=== PATIENT | female | born 1945 | race Caucasian/White ===

== ENCOUNTER 2017-11-28 11:33 | Inpatient (IN) | payer MEDICARE, OTHER ==
[2017-11-28] MEDS ORDERED: IPRATROPIUM/ALBUTEROL 0.5-2.5 MG/3 ML AMPUL NEB ONE ×2 (11:56→14:21)
--- NOTE | 2017-11-28 11:56 | ER Document Report ---
ED Medical Screen (RME) - General Chief Complaint: Cough Stated Complaint: SHORTNESS OF BREATH Time Seen by Provider: 11/28/17 11:56 Notes: 71-year-old female patient emergency department chief complaint shortness of breath and cough. Vomiting. Nausea. Not feeling well. Smokes daily. Was exposed to secondhand smoke as well. Cannot seem to catch her breath. Has a prescription for albuterol. Also diabetic. I have greeted and performed a rapid initial assessment of this patient. A comprehensive ED assessment and evaluation of the patient, analysis of test results and completion of the medical decision making process will be conducted by additional ED providers. - Related Data Allergies/Adverse Reactions: acetaminophen [From Darvocet-N] Allergy (Verified 11/28/17 11:49) codeine [Codeine] Allergy (Verified 11/28/17 11:49) meperidine [From Demerol] Allergy (Verified 11/28/17 11:49) propoxyphene [From Darvocet-N] Allergy (Verified 11/28/17 11:49) Past Medical History - General Information source: Patient - Social History Chew tobacco use (# tins/day): No Frequency of alcohol use: None Drug Abuse: None Lives with: Spouse/Significant other Family history: Reviewed & Not Pertinent Pulmonary Medical History: Reports: Hx Asthma Endocrine Medical History: Reports: Hx Diabetes Mellitus Type 2 Renal/ Medical History: Denies: Hx Peritoneal Dialysis Psychiatric Medical History: Reports: Hx Depression Past Surgical History: Reports: Hx Orthopedic Surgery - back, Hx Tonsillectomy - Immunizations Hx Diphtheria, Pertussis, Tetanus Vaccination: Yes Review of Systems - Review of Systems Constitutional: Malaise, Weakness. denies: Fever EENT: denies: Blurred vision, Nose pain, Throat pain, Difficulty swallowing, Throat swelling, Mouth pain Cardiovascular: Palpitations, Heart racing. denies: Chest pain Respiratory: Cough, Hurts to breathe, Short of breath, Wheezing Gastrointestinal: Nausea, Vomiting. denies: Abdominal pain, Diarrhea Genitourinary: denies: Dysuria, Discharge, Frequency Musculoskeletal: denies: Back pain, Joint pain, Muscle pain Skin: denies: Dryness, Lesions, Lumps, Rash Neurological/Psychological: denies: Confusion, Weakness, Numbness Physical Exam - Vital signs Vitals: Temp Pulse Resp BP Pulse Ox 100.0 F 107 H 24 H 128/71 H 95 11/28/17 11:42 11/28/17 11:42 11/28/17 11:42 11/28/17 11:42 11/28/17 11:42 Interpretation: Tachycardic, Tachypneic - General General appearance: Appears well, Alert - HEENT Head: Normocephalic, Atraumatic Eyes: Normal Pupils: PERRL - Respiratory Respiratory status: No respiratory distress Chest status: Nontender Breath sounds: Decreased air movement, Rales, Rhonchi, Wheezing Chest palpation: Normal - Cardiovascular Rhythm: Tachycardia Heart sounds: Normal auscultation Murmur: No - Abdominal Inspection: Normal Distension: No distension Bowel sounds: Normal Tenderness: Nontender Organomegaly: No organomegaly - Back Back: Normal, Nontender - Extremities General upper extremity: Normal inspection, Nontender, Normal color, Normal ROM , Normal temperature General lower extremity: Normal inspection, Nontender, Normal color, Normal ROM , Normal temperature, Normal weight bearing. No: Cielo's sign - Neurological Neuro grossly intact: Yes Cognition: Normal Orientation: AAOx4 [place] Coma Scale Eye Opening: Spontaneous Grant Coma Scale Verbal: Oriented [place] Coma Scale Motor: Obeys Commands Grant Coma Scale Total: 15 Speech: Normal Motor strength normal: LUE, RUE, LLE, RLE Sensory: Normal - Psychological Associated symptoms: Normal affect, Normal mood - Skin Skin Temperature: Warm Skin Moisture: Dry Skin Color: Normal Course - Vital Signs Vital signs: Temp Pulse Resp BP Pulse Ox 100.0 F 107 H 24 H 128/71 H 95 11/28/17 11:42 11/28/17 11:42 11/28/17 11:42 11/28/17 11:42 11/28/17 11:42
[2017-11-28] MEDS ORDERED: ONDANSETRON 4 MG TAB.RAPDIS PO ONE (11:57)
[2017-11-28 12:57] LABS: ABSOLUTE BASOPHILS # (AUTO) 0.1 10^3/uL (0.0-0.2); ABSOLUTE EOSINOPHILS # (AUTO) 0.1 10^3/uL (0.0-0.6); ABSOLUTE LYMPHOCYTES (AUTO) 1.4 10^3/uL (0.5-4.7); ABSOLUTE MONOCYTES (AUTO) 1.3 10^3/uL (0.1-1.4); ABSOLUTE NEUT (AUTO) 15.5 10^3/uL (1.7-8.2); BASOPHILS % (AUTO) 0.5 % (0-2); EOSINOPHILS % (AUTO) 0.4 % (0-6); HEMATOCRIT 41.2 % (36.0-47.0); HEMOGLOBIN 13.8 g/dL (12.0-15.5); LYMPHOCYTES % (AUTO) 7.4 % (13-45); MEAN CORPUSCULAR HEMOGLOBIN 28.9 pg (27.0-33.4); MEAN CORPUSCULAR HGB CONC 33.4 g/dL (32.0-36.0); MEAN CORPUSCULAR VOLUME 86 fl (80-97); MONOCYTES % (AUTO) 6.8 % (3-13); RED BLOOD COUNT 4.77 10^6/uL (3.72-5.28); RED CELL DISTRIBUTION WIDTH 15.2 % (11.5-14.0); SEGMENTED NEUTROPHILS % (AUTO) 84.9 % (42-78); TOTAL CELLS COUNTED % (AUTO) 100 %; WHITE BLOOD COUNT 18.3 10^3/uL (4.0-10.5)
[2017-11-28 13:12] LABS: PLATELET COUNT 216 10^3/uL (150-450)
[2017-11-28 13:13] LABS: ALANINE AMINOTRANSFERASE 64 U/L (9-52); ALBUMIN 3.7 g/dL (3.5-5.0); ALKALINE PHOSPHATASE 114 U/L (38-126); ANION GAP 13 (5-19); ASPARTATE AMINO TRANSFERASE 41 U/L (14-36); BILIRUBIN,DIRECT 0.5 mg/dL (0.0-0.4); BLOOD UREA NITROGEN 12 mg/dL (7-20); CALCIUM 8.7 mg/dL (8.4-10.2); CARBON DIOXIDE 22 mmol/L (22-30); CHLORIDE 106 mmol/L (98-107); GLUCOSE 122 mg/dL (75-110); POTASSIUM 4.2 mmol/L (3.6-5.0); SODIUM 140.5 mmol/L (137-145); TOTAL PROTEIN 5.9 g/dL (6.3-8.2)
[2017-11-28 13:24] LABS: NT PRO BNP 239 pg/mL (5-900); TROPONIN I < 0.012 ng/mL
--- NOTE | 2017-11-28 13:25 | RADIOLOGY REPORT (SQ) ---
EXAM DESCRIPTION: CHEST SINGLE VIEW COMPLETED DATE/TIME: 11/28/2017 12:54 pm REASON FOR STUDY: sob COMPARISON: None. EXAM PARAMETERS: NUMBER OF VIEWS: One view. TECHNIQUE: Single frontal radiographic view of the chest acquired. RADIATION DOSE: NA LIMITATIONS: Obese patient, AP portable film FINDINGS: LUNGS AND PLEURA: Minimal left upper lobe bandlike scarring or atelectasis. Lungs are otherwise grossly clear. No pleural effusion or pneumothorax. MEDIASTINUM AND HILAR STRUCTURES: No masses. Contour normal. HEART AND VASCULAR STRUCTURES: Mild cardiomegaly BONES: No acute findings. HARDWARE: None in the chest. OTHER: No other significant finding. IMPRESSION: Left upper lobe bandlike scarring or atelectasis. TECHNICAL DOCUMENTATION: JOB ID: [id number]- All Rights Reserved Reading location - IP/workstation name: [email or web address]
[2017-11-28] MEDS ORDERED: METOPROLOL TARTRATE PF/INJ 5 MG/5 ML SDV IV ONE (15:07)
[2017-11-28] MEDS ORDERED: NORMAL SALINE 1000 ML 1,000 ML IV ONE (15:07)
--- NOTE | 2017-11-28 15:35 | ER Document Report ---
ED Respiratory Problem - General Chief Complaint: Cough Stated Complaint: SHORTNESS OF BREATH Time Seen by Provider: 11/28/17 11:56 Notes: Patient says that she has had a cough for the past couple of days that is getting worse last night. EMS was called to the scene last night and gave her a nebulizer treatment. She has had a cough but is not very productive. Was not aware of any fever. She has chronic ankle swelling, but does not recall being told that she has any CHF. She called EMS again today because her breathing was worse and they transported her here. Patient says she has a history of asthma, but has not been told she has COPD, in spite of the fact that she continues to smoke about less than a pack of cigarettes a day. Nauseated but not vomiting. - Related Data Allergies/Adverse Reactions: acetaminophen [From Darvocet-N] Allergy (Verified 11/28/17 11:49) codeine [Codeine] Allergy (Verified 11/28/17 11:49) meperidine [From Demerol] Allergy (Verified 11/28/17 11:49) propoxyphene [From Darvocet-N] Allergy (Verified 11/28/17 11:49) Past Medical History - General Information source: Patient - Social History Smoking Status: Current Every Day Smoker Chew tobacco use (# tins/day): No Frequency of alcohol use: None Drug Abuse: None Lives with: Spouse/Significant other Family History: Reviewed & Not Pertinent, Other Patient has suicidal ideation: No Patient has homicidal ideation: No - Past Medical History Cardiac Medical History: Denies: Hx Atrial Fibrillation, Hx Congestive Heart Failure Pulmonary Medical History: Reports: Hx Asthma Endocrine Medical History: Reports: Hx Diabetes Mellitus Type 2, Hx Hypothyroidism Musculoskeltal Medical History: Reports Hx Fibromyalgia Psychiatric Medical History: Reports: Hx Anxiety, Hx Depression Past Surgical History: Reports: Hx Section - 2, Hx Orthopedic Surgery - Lower back surgery, Hx Tonsillectomy - Immunizations Hx Diphtheria, Pertussis, Tetanus Vaccination: Yes Review of Systems - Review of Systems Notes: REVIEW OF SYSTEMS: CONSTITUTIONAL : Denies fever. EENT: Denies eye, ear, nose or mouth or throat pain or other symptoms. CARDIOVASCULAR: Denies chest pain. Intermittent swelling of both ankles off and on. RESPIRATORY: As a cough that is not very productive. Some shortness of breath.. GASTROINTESTINAL: Patient has nausea but denies vomiting or diarrhea. GENITOURINARY: Denies difficulty or painful urinating, urinary frequency, blood in urine. MUSCULOSKELETAL: Denies back or neck pain. Denies joint pain or swelling. SKIN: Denies rash or skin lesions. NEUROLOGICAL: Denies LOC or altered mental status. Denies headache. Denies sensory loss or motor deficits. ALL OTHER SYSTEMS REVIEWED AND NEGATIVE. Physical Exam - Vital signs Vitals: Temp Pulse Resp BP Pulse Ox 100.0 F 107 H 24 H 128/71 H 95 11/28/17 11:42 11/28/17 11:42 11/28/17 11:42 11/28/17 11:42 11/28/17 11:42 Interpretation: Hypoxic - On room air, O2 sat drops to about 88%., Febrile - Low -grade - Notes Notes: PHYSICAL EXAMINATION: GENERAL: Well-appearing, in no acute distress. Low-grade fever. Other vital signs essentially normal except for O2 sat when off of oxygen, she is running about 88%. HEAD: Atraumatic, normocephalic. EYES: Pupils equal round and reactive to light, extraocular movements intact. ENT: oropharynx clear without exudates. Moist mucous membranes. NECK: Normal range of motion, supple. LUNGS: Breath sounds with a few rhonchi and wheezes bilaterally. HEART: Regular rate and rhythm without murmurs. ABDOMEN: Soft, nontender. No guarding or rebound. No masses. BACK: No tenderness throughout entire back. EXTREMITIES: Normal range of motion without pain. No significant edema. Negative Homans bilaterally. NEUROLOGICAL: Normal speech, normal gait. Normal sensory, motor, and reflex exams. Awake, alert, and oriented x3. Cranial nerves normal. PSYCH: Normal mood, normal affect. SKIN: Warm, dry, no rashes. Course - Re-evaluation Re-evalutation: 11/28/17 15:34 I was presented with a lead II rhythm strip showing the patient had a tachycardia at about 150/min. Nurse says it started when the patient strained and was coughing hard. It spontaneously reverted back to what looks like a sinus rhythm at about 120 bpm. Patient denies any chest pains. She is being given 5 mg of Lopressor IV as well as a liter of saline IV. She has no evidence of congestive failure on her chest x-ray and her BNP is normal. 11/28/17 15:52 Discussed with hospitalist who will admit the patient. - Vital Signs Vital signs: Temp Pulse Resp BP Pulse Ox 98.3 F 107 H 26 H 122/83 93 11/28/17 16:50 11/28/17 16:50 11/28/17 17:30 11/28/17 17:30 11/28/17 17:15 - Laboratory Result Diagrams: 11/28/17 12:35 11/28/17 12:35 Laboratory results interpreted by me: 11/28/17 11/28/17 12:35 12:35 WBC 18.3 H RDW 15.2 H Seg Neutrophils % 84.9 H Lymphocytes % 7.4 L Absolute Neutrophils 15.5 H Glucose 122 H Direct Bilirubin 0.5 H AST 41 H ALT 64 H Total Protein 5.9 L - Diagnostic Test Radiology results interpreted by me: 11/28/17 15:45 Chest x-ray shows COPD. There is also described a band structure that is either atelectasis or scar tissue in the left upper lobe region. - EKG Interpretation by Oh EKG shows normal: Sinus rhythm Rate: Tachycardia - At 104 Rhythm: NSR Additional EKG results interpreted by me: 11/28/17 15:46 EKG does not show any acute changes. Discharge - Discharge Clinical Impression: COPD exacerbation, Paroxysmal supraventricular tachycardia, Hypoxia Condition: Stable Disposition: ADMITTED INPATIENT Admitting Provider: Hospitalist Unit Admitted: Telemetry
[2017-11-28] MEDS ORDERED: METHYLPREDNISOLONE INJ 125 MG/2 ML SDV IV ONE (15:55)
[2017-11-28] MEDS ORDERED: IPRATROPIUM/ALBUTEROL 0.5-2.5 MG/3 ML AMPUL NEB PRN (16:50)
[2017-11-28] MEDS ORDERED: ONDANSETRON HCL INJ/PF 4 MG/2 ML SDV IV PRN (16:50)
--- NOTE | 2017-11-28 16:50 | EKG REPORT ---
SEVERITY:- ABNORMAL ECG - SINUS TACHYCARDIA DIFFUSE NONSPECIFIC ST-T CHANGES, NEW SINCE 10/20/12 EKG : Confirmed by: Joe Grant MD 28-Nov-2017 16:49:51
[2017-11-28] MEDS ORDERED: GUAIFENESIN/D-METHORPHAN (200-20 MG) SYRUP 10 ML PO PRN (17:00)
--- NOTE | 2017-11-28 17:23 | PDOC H&P ---
History of Present Illness Admission Date/PCP: 11/28/17 16:36 Patient complains of: Difficulty breathing, SOB, Cough with dry sputum History of Present Illness: SHAYY GRANT is a 71 year old female who presents emergency room with complaints of cough difficulty breathing. She was actually seen by EMS last night due to same and was given a dilator. She was brought in by EMS today due to persistent symptoms. She gives a prior history of asthma but denies history of COPD. Patient has a history of 1 pack a day smoking. She was found to be bronchospastic in the ER and found to have a white count of 18,000. Denies use of bronchodilators on a chronic basis. He was found to be hypoxic in the emergency room with initial oxygen saturation of 88%. It appears patient was also found to have a transient episode of supraventricular tachycardia which spontaneously resolved. There is no prior history of cardiac disease. Transient SVT is likely related to her respiratory status. There is no chest pain, difficulty breathing prior to this although she gives history of ankle swelling. Past Medical History Cardiac Medical History: Denies: Atrial Fibrillation, Congestive Heart Failure Pulmonary Medical History: Reports: Asthma Endocrine Medical History: Reports: Diabetes Mellitus Type 2, Hypothyroidism Musculoskeltal Medical History: Reports: Fibromyalgia Psychiatric Medical History: Reports: Depression Past Surgical History Past Surgical History: Reports: Section - 2, Orthopedic Surgery - Lower back surgery, Tonsillectomy Social History Lives with: Spouse/Significant other Smoking Status: Current Some Day Smoker Frequency of Alcohol Use: None - Advance Directive Resuscitation Status: Do Not Resuscitate Family History Family History: Reviewed & Not Pertinent, Other Parental Family History Reviewed: Yes Children Family History Reviewed: NA Sibling(s) Family History Reviewed.: Unknown Medication/Allergy Home Medications: Albuterol Sulfate [Proventil HFA] 1 inh IH Q2 10/20/12 Docusate Sodium [Colace 100 mg Capsule] 100 mg PO BID #60 capsule 10/20/12 Duloxetine HCl [Cymbalta 30 Mg Capsule.Dr] 60 mg PO BID 10/20/12 Fenofibrate,Micronized [Lofibra] 67 mg PO QHS 10/20/12 Gabapentin [Neurontin 300 Mg Capsule] 300 mg PO BID 10/20/12 Indomethacin [Indocin 50 Mg Capsule] 50 mg PO BID 10/20/12 Levothyroxine Sodium [Synthroid] 100 mcg PO QAM 10/20/12 Lorazepam [Ativan 1 mg Tablet] 2 mg PO Q4 10/20/12 Sennosides [Senna] 8.6 mg PO DAILY #30 capsule 10/20/12 Allergies/Adverse Reactions: acetaminophen [From Darvocet-N] Allergy (Verified 11/28/17 11:49) codeine [Codeine] Allergy (Verified 11/28/17 11:49) meperidine [From Demerol] Allergy (Verified 11/28/17 11:49) propoxyphene [From Darvocet-N] Allergy (Verified 11/28/17 11:49) Review of Systems All systems: reviewed and no additional remarkable complaints except as stated Physical Exam Vital Signs: Temp Pulse Resp BP Pulse Ox 100.0 F 107 H 20 139/93 H 94 11/28/17 11:42 11/28/17 11:42 11/28/17 15:30 11/28/17 15:30 11/28/17 15:30 General appearance: PRESENT: no acute distress, morbidly obese, well-developed, well-nourished Mouth exam: PRESENT: moist, tongue midline Neck exam: ABSENT: carotid bruit, JVD, lymphadenopathy, thyromegaly Respiratory exam: PRESENT: crackles, rhonchi, tachypnea, wheezes. ABSENT: chest wall tenderness, clear to auscultation asha Cardiovascular exam: PRESENT: RRR, +S1, +S2 Pulses: PRESENT: normal dorsalis pedis pul GI/Abdominal exam: PRESENT: normal bowel sounds, soft. ABSENT: distended, guarding, mass, organolmegaly, rebound, tenderness Rectal exam: PRESENT: deferred Neurological exam: PRESENT: alert, awake, oriented to person, oriented to place , oriented to time, oriented to situation, CN II-XII grossly intact. ABSENT: motor sensory deficit Psychiatric exam: PRESENT: appropriate affect, normal mood. ABSENT: homicidal ideation, suicidal ideation Results Laboratory Results: 11/28/17 12:35 11/28/17 12:35 MCV 86 fl (80-97) 11/28/17 12:35 MCH 28.9 pg (27.0-33.4) 11/28/17 12:35 MCHC 33.4 g/dL (32.0-36.0) 11/28/17 12:35 RDW 15.2 % (11.5-14.0) H 11/28/17 12:35 Seg Neutrophils % 84.9 % (42-78) H 11/28/17 12:35 Lymphocytes % 7.4 % (13-45) L 11/28/17 12:35 Monocytes % 6.8 % (3-13) 11/28/17 12:35 Eosinophils % 0.4 % (0-6) 11/28/17 12:35 Basophils % 0.5 % (0-2) 11/28/17 12:35 Absolute Neutrophils 15.5 10^3/uL (1.7-8.2) H 11/28/17 12:35 Absolute Lymphocytes 1.4 10^3/uL (0.5-4.7) 11/28/17 12:35 Absolute Monocytes 1.3 10^3/uL (0.1-1.4) 11/28/17 12:35 Absolute Eosinophils 0.1 10^3/uL (0.0-0.6) 11/28/17 12:35 Absolute Basophils 0.1 10^3/uL (0.0-0.2) 11/28/17 12:35 Chloride 106 mmol/L (98-107) 11/28/17 12:35 Carbon Dioxide 22 mmol/L (22-30) 11/28/17 12:35 Anion Gap 13 (5-19) 11/28/17 12:35 Est GFR ( Amer) > 60 (>60) 11/28/17 12:35 Est GFR (Non-Af Amer) > 60 (>60) 11/28/17 12:35 Glucose 122 mg/dL (75-110) H 11/28/17 12:35 Lactic Acid 1.0 mmol/L (0.7-2.1) 11/28/17 12:35 Calcium 8.7 mg/dL (8.4-10.2) 11/28/17 12:35 Total Bilirubin 1.0 mg/dL (0.2-1.3) 11/28/17 12:35 AST 41 U/L (14-36) H 11/28/17 12:35 ALT 64 U/L (9-52) H 11/28/17 12:35 Alkaline Phosphatase 114 U/L (38-126) 11/28/17 12:35 Total Protein 5.9 g/dL (6.3-8.2) L 11/28/17 12:35 Albumin 3.7 g/dL (3.5-5.0) 11/28/17 12:35 11/28/17 12:35 Troponin I < 0.012 NT-Pro-B Natriuret Pep 239 Impressions: Chest X-Ray 11/28/17 11:56 IMPRESSION: Left upper lobe bandlike scarring or atelectasis. Assessment & Plan - Diagnosis (1) Acute respiratory failure with hypoxemia Is this a current diagnosis for this admission?: Yes Plan: Patient will be given oxygen support. Initial oxygen was 88% likely hypoxemic from a COPD exacerbation, pneumonia. (2) Pneumonia Qualifiers: Pneumonia type: due to unspecified organism Laterality: left Lung location: upper lobe of lung Qualified Code(s): J18.1 - Lobar pneumonia, unspecified organism Is this a current diagnosis for this admission?: Yes Plan: Community-acquired pneumonia likely left upper lobe although chest x-ray indicates atelectasis clinically patient likely has pneumonia. She will be started on Levaquin as well as antitussives. (3) Morbid obesity with BMI of 45.0-49.9, adult Is this a current diagnosis for this admission?: Yes Plan: Weight loss advised (4) Nicotine abuse Is this a current diagnosis for this admission?: Yes Plan: Smoking cessation encouraged (5) COPD exacerbation Is this a current diagnosis for this admission?: Yes Plan: She will be placed on bronchodilators as well as steroids and oxygen as well as other supportive measures will be done (6) Paroxysmal supraventricular tachycardia Is this a current diagnosis for this admission?: Yes Plan: Likely related to respiratory status. Will monitor on telemetry. Further studies will be done depending on her ultimately hospital course - Time Time Spent: 50 to 70 Minutes Smoking Cessation Education: 3 to 10 minutes Medications reviewed and adjusted accordingly: Yes - Inpatient Certification Based on my medical assessment, after consideration of the patient's comorbidities, presenting symptoms, or acuity I expect that the services needed warrant INPATIENT care.: Yes I certify that my determination is in accordance with my understanding of Medicare's requirements for reasonable and necessary INPATIENT services [42 CFR 412.3e].: Yes Medical Necessity: Need for Nebulizer Therapy and Monitoring of Response, Need for IV Antibiotics, Risk of Complication if Not Cared For in Hospital - Plan Summary Plan Summary: Patient is a DO NOT RESUSCITATE. I had a discussion with her and she understands and has opted to choose this
[2017-11-28] MEDS: LEVOFLOXACIN 500 MG/D5W RTU 500 MG/100 ML RTUPB IV SCH (19:04)
[2017-11-28] MEDS: ALBUTEROL SULFATE 0.083% NEB 2.5 MG/3 ML AMPUL NEB SCH (20:03)
[2017-11-28] MEDS: METHYLPREDNISOLONE INJ 40 MG/1 ML SDV IV SCH (20:45)
[2017-11-28] MEDS ORDERED: METFORMIN HCL 500 MG TABLET PO ONE (21:00)
[2017-11-28] MEDS: FAMOTIDINE 20 MG TABLET PO SCH (21:11)
[2017-11-28] MEDS: DULOXETINE HCL 30 MG CAPSULE.DR PO SCH (21:11)
[2017-11-28] MEDS: ACETAMINOPHEN 325 MG TABLET PO PRN (21:12)
[2017-11-28] MEDS: GUAIFENESIN 600 MG TABLET.SA PO SCH (21:12)
[2017-11-28] MEDS: LORAZEPAM 1 MG TABLET PO SCH (21:13)
[2017-11-29] MEDS: ALBUTEROL SULFATE 0.083% NEB 2.5 MG/3 ML AMPUL NEB SCH ×4 (02:11→20:41)
[2017-11-29] MEDS: METHYLPREDNISOLONE INJ 40 MG/1 ML SDV IV SCH ×2 (02:44→09:40)
[2017-11-29 04:56] LABS: HEMATOCRIT 38.3 % (36.0-47.0); HEMOGLOBIN 12.7 g/dL (12.0-15.5); MEAN CORPUSCULAR HEMOGLOBIN 28.9 pg (27.0-33.4); MEAN CORPUSCULAR HGB CONC 33.2 g/dL (32.0-36.0); MEAN CORPUSCULAR VOLUME 87 fl (80-97); PLATELET COUNT 222 10^3/uL (150-450); RED BLOOD COUNT 4.39 10^6/uL (3.72-5.28); RED CELL DISTRIBUTION WIDTH 14.9 % (11.5-14.0); WHITE BLOOD COUNT 19.8 10^3/uL (4.0-10.5)
[2017-11-29] MEDS: LORAZEPAM 1 MG TABLET PO SCH ×3 (05:15→21:39)
[2017-11-29 05:21] LABS: ANION GAP 11 (5-19); BLOOD UREA NITROGEN 13 mg/dL (7-20); CALCIUM 9.2 mg/dL (8.4-10.2); CARBON DIOXIDE 23 mmol/L (22-30); CHLORIDE 109 mmol/L (98-107); GLUCOSE 141 mg/dL (75-110); POTASSIUM 4.4 mmol/L (3.6-5.0); SODIUM 143.2 mmol/L (137-145)
[2017-11-29 05:27] LABS: NT PRO BNP 567 pg/mL (5-900)
[2017-11-29 05:35] LABS: TROPONIN I < 0.012 ng/mL
[2017-11-29] MEDS: METFORMIN HCL 500 MG TABLET PO SCH ×2 (07:21→17:13)
[2017-11-29] MEDS: DOCUSATE SODIUM 100 MG CAPSULE PO SCH (09:40)
[2017-11-29] MEDS: ACETAMINOPHEN 325 MG TABLET PO PRN ×3 (09:40→21:39)
[2017-11-29] MEDS: GUAIFENESIN 600 MG TABLET.SA PO SCH ×2 (09:40→21:39)
[2017-11-29] MEDS: ENOXAPARIN SODIUM INJ 40 MG/0.4 ML DISP.SYRIN SUBCUT SCH (09:53)
[2017-11-29] MEDS: FAMOTIDINE 20 MG TABLET PO SCH ×2 (09:53→21:39)
[2017-11-29] MEDS ORDERED: INSULIN LISPRO 100 UNIT/ML 3 ML VIAL SUBCUT PRN (12:20)
[2017-11-29] MEDS ORDERED: DEXTROSE 40% GEL 15 GM TUBE X 2 PO PRN (12:20)
[2017-11-29] MEDS ORDERED: DEXTROSE 40% GEL 15 GM TUBE PO PRN (12:20)
[2017-11-29] MEDS ORDERED: DEXTROSE 50%-WATER SYRINGE 12.5 GM/25 ML DOSE IV PRN (12:20)
[2017-11-29] MEDS ORDERED: DEXTROSE 50%-WATER SYRINGE 25 GM/50 ML DOSE IV PRN (12:20)
[2017-11-29] MEDS ORDERED: GLUCAGON,HUMAN RECOMB 1 MG INJ IM PRN (12:20)
--- NOTE | 2017-11-29 14:02 | PDOC PROGRESS REPORT ---
Subjective Progress Note for:: 11/29/17 Subjective:: She was admitted with difficulty breathing and shortness of breath thought to be likely from pneumonia as well as COPD exacerbation. Patient says she has no prior history of COPD however she has a long history of smoking and still currently smokes. He was laying flat in bed this morning when I entered the room and says she has no difficulty laying flat. She admits to feeling much better. Reason For Visit: ACUTE HYPOXEMIC RESPIRATORY FAILURE Physical Exam Vital Signs: Temp Pulse Resp BP Pulse Ox 97.9 F 91 20 125/64 94 11/29/17 11:23 11/29/17 11:23 11/29/17 11:23 11/29/17 11:23 11/29/17 11:23 Intake & Output 11/28/17 11/29/17 11/30/17 06:59 06:59 06:59 Intake Total 1525 Balance 1525 Weight 125.5 kg General appearance: PRESENT: no acute distress, well-developed, well-nourished Head exam: PRESENT: atraumatic, normocephalic Eye exam: PRESENT: conjunctiva pink, EOMI, PERRLA. ABSENT: scleral icterus Ear exam: PRESENT: normal external ear exam Mouth exam: PRESENT: moist, tongue midline Neck exam: ABSENT: carotid bruit, JVD, lymphadenopathy, thyromegaly Respiratory exam: PRESENT: rhonchi, wheezes - Scattered inspiratory, other - Improved air entry. ABSENT: rales, tachypnea Cardiovascular exam: PRESENT: RRR. ABSENT: diastolic murmur, rubs, systolic murmur Pulses: PRESENT: normal dorsalis pedis pul Vascular exam: PRESENT: normal capillary refill GI/Abdominal exam: PRESENT: normal bowel sounds, soft. ABSENT: distended, guarding, mass, organolmegaly, rebound, tenderness Rectal exam: PRESENT: deferred Extremities exam: PRESENT: full ROM. ABSENT: calf tenderness, clubbing, pedal edema Neurological exam: PRESENT: alert, awake, oriented to person, oriented to place , oriented to time, oriented to situation, CN II-XII grossly intact. ABSENT: motor sensory deficit Psychiatric exam: PRESENT: appropriate affect, normal mood. ABSENT: homicidal ideation, suicidal ideation Skin exam: PRESENT: dry, intact, warm. ABSENT: cyanosis, rash Results Laboratory Results: 11/29/17 03:55 11/29/17 03:55 11/29/17 11/29/17 11/29/17 03:55 03:55 03:55 WBC 19.8 H RBC 4.39 Hgb 12.7 Hct 38.3 MCV 87 MCH 28.9 MCHC 33.2 RDW 14.9 H Plt Count 222 Sodium 143.2 Potassium 4.4 Chloride 109 H Carbon Dioxide 23 Anion Gap 11 BUN 13 Creatinine 0.74 Est GFR ( Amer) > 60 Est GFR (Non-Af Amer) > 60 Glucose 141 H Calcium 9.2 Magnesium 2.5 H TSH 0.20 L 11/29/17 03:55 Troponin I < 0.012 NT-Pro-B Natriuret Pep 567 Impressions: Chest X-Ray 11/28/17 11:56 IMPRESSION: Left upper lobe bandlike scarring or atelectasis. Assessment & Plan - Diagnosis (1) Acute respiratory failure with hypoxemia Is this a current diagnosis for this admission?: Yes Plan: Patient's breathing is improved will continue with oxygen support for now and taper off as necessary (2) Pneumonia Qualifiers: Pneumonia type: due to unspecified organism Laterality: left Lung location: upper lobe of lung Qualified Code(s): J18.1 - Lobar pneumonia, unspecified organism Is this a current diagnosis for this admission?: Yes Plan: We will continue empiric antibiotics. Although her leukocytosis is slightly worse this is likely from the steroids as patient is clinically improved (3) Morbid obesity with BMI of 45.0-49.9, adult Is this a current diagnosis for this admission?: Yes (4) Nicotine abuse Is this a current diagnosis for this admission?: Yes Plan: Smoking cessation encouraged (5) COPD exacerbation Is this a current diagnosis for this admission?: Yes Plan: We will taper steroids as tolerated. I have advised patient to follow-up with her primary care physician once acute illness is over for further pulmonary function test if indicated as she denies any prior history of COPD (6) Paroxysmal supraventricular tachycardia Is this a current diagnosis for this admission?: Yes Plan: There has been no further episodes since initial one in the emergency department will defer any cardiac workup for now - Time Time Spent with patient: 15-24 minutes Medications reviewed and adjusted accordingly: Yes Anticipated discharge: Home Within: within 48 hours - Inpatient Certification Based on my medical assessment, after consideration of the patient's comorbidities, presenting symptoms, or acuity I expect that the services needed warrant INPATIENT care.: Yes Medical Necessity: Need for Nebulizer Therapy and Monitoring of Response, Risk of Complication if Not Cared For in Hospital
[2017-11-29] MEDS: PREDNISONE 20 MG TABLET PO SCH (17:13)
[2017-11-29] MEDS: LEVOFLOXACIN 500 MG/D5W RTU 500 MG/100 ML RTUPB IV SCH (17:14)
[2017-11-29] MEDS: DULOXETINE HCL 30 MG CAPSULE.DR PO SCH (21:39)
[2017-11-30] MEDS: ALBUTEROL SULFATE 0.083% NEB 2.5 MG/3 ML AMPUL NEB SCH ×4 (01:46→19:22)
[2017-11-30] MEDS: LEVOTHYROXINE SODIUM 0.1 MG TABLET PO SCH (04:54)
[2017-11-30] MEDS: LORAZEPAM 1 MG TABLET PO SCH ×3 (04:55→22:21)
[2017-11-30 05:29] LABS: HEMATOCRIT 36.4 % (36.0-47.0); HEMOGLOBIN 11.9 g/dL (12.0-15.5); MEAN CORPUSCULAR HEMOGLOBIN 28.5 pg (27.0-33.4); MEAN CORPUSCULAR HGB CONC 32.7 g/dL (32.0-36.0); MEAN CORPUSCULAR VOLUME 87 fl (80-97); PLATELET COUNT 290 10^3/uL (150-450); RED BLOOD COUNT 4.18 10^6/uL (3.72-5.28); RED CELL DISTRIBUTION WIDTH 15.2 % (11.5-14.0); WHITE BLOOD COUNT 19.9 10^3/uL (4.0-10.5)
[2017-11-30] MEDS: METFORMIN HCL 500 MG TABLET PO SCH ×2 (08:09→17:10)
[2017-11-30] MEDS: DOCUSATE SODIUM 100 MG CAPSULE PO SCH (09:52)
[2017-11-30] MEDS: GUAIFENESIN 600 MG TABLET.SA PO SCH ×2 (09:52→22:20)
[2017-11-30] MEDS: PREDNISONE 20 MG TABLET PO SCH ×2 (09:52→17:10)
[2017-11-30] MEDS: FAMOTIDINE 20 MG TABLET PO SCH ×2 (09:52→22:18)
[2017-11-30] MEDS: ENOXAPARIN SODIUM INJ 40 MG/0.4 ML DISP.SYRIN SUBCUT SCH (09:52)
[2017-11-30] MEDS: ACETAMINOPHEN 325 MG TABLET PO PRN ×2 (15:26→22:19)
[2017-11-30] MEDS ORDERED: LEVOFLOXACIN 750 MG TABLET PO SCH (18:00)
[2017-11-30] MEDS ORDERED: IBUPROFEN 600 MG TABLET PO PRN (18:58)
--- NOTE | 2017-11-30 19:06 | PDOC PROGRESS REPORT ---
Subjective Progress Note for:: 11/30/17 Subjective:: She was admitted with difficulty breathing and shortness of breath thought to be likely from pneumonia as well as COPD exacerbation. Patient says she has no prior history of COPD however she has a long history of smoking and still currently smokes. Patient says she actually is feeling much better and she would like to go home today. Her breathing is much better and oxygen saturation is currently over 90 % on room air. Reason For Visit: ACUTE HYPOXEMIC RESPIRATORY FAILURE Physical Exam Vital Signs: Temp Pulse Resp BP Pulse Ox 98.3 F 93 21 H 128/66 H 95 11/30/17 15:14 11/30/17 15:14 11/30/17 15:14 11/30/17 15:14 11/30/17 15:14 Intake & Output 11/29/17 11/30/17 12/01/17 06:59 06:59 06:59 Intake Total 1525 1333 513 Balance 1525 1333 513 Weight 125.5 kg 125.6 kg General appearance: PRESENT: no acute distress, morbidly obese, well-developed, well-nourished Head exam: PRESENT: atraumatic, normocephalic Eye exam: PRESENT: conjunctiva pink, EOMI, PERRLA. ABSENT: scleral icterus Ear exam: PRESENT: normal external ear exam Mouth exam: PRESENT: moist, tongue midline Neck exam: ABSENT: carotid bruit, JVD, lymphadenopathy, thyromegaly Respiratory exam: PRESENT: decreased breath sounds, rhonchi, unlabored. ABSENT : rales, wheezes Cardiovascular exam: PRESENT: RRR. ABSENT: diastolic murmur, rubs, systolic murmur Pulses: PRESENT: normal dorsalis pedis pul Vascular exam: PRESENT: normal capillary refill GI/Abdominal exam: PRESENT: normal bowel sounds, soft. ABSENT: distended, guarding, mass, organolmegaly, rebound, tenderness Rectal exam: PRESENT: deferred Extremities exam: PRESENT: full ROM. ABSENT: calf tenderness, clubbing, pedal edema Neurological exam: PRESENT: alert, awake, oriented to person, oriented to place , oriented to time, oriented to situation, CN II-XII grossly intact. ABSENT: motor sensory deficit Psychiatric exam: PRESENT: appropriate affect, normal mood. ABSENT: homicidal ideation, suicidal ideation Skin exam: PRESENT: dry, warm. ABSENT: cyanosis, rash Results Laboratory Results: 11/30/17 05:13 11/29/17 03:55 11/30/17 05:13 WBC 19.9 H RBC 4.18 Hgb 11.9 L Hct 36.4 MCV 87 MCH 28.5 MCHC 32.7 RDW 15.2 H Plt Count 290 11/29/17 03:55 Troponin I < 0.012 NT-Pro-B Natriuret Pep 567 Impressions: Chest X-Ray 11/28/17 11:56 IMPRESSION: Left upper lobe bandlike scarring or atelectasis. Assessment & Plan - Diagnosis (1) Acute respiratory failure with hypoxemia Is this a current diagnosis for this admission?: Yes Plan: Patient's breathing is improved She feels clinically better. We will taper off oxygen and encourage ambulation (2) Pneumonia Qualifiers: Pneumonia type: due to unspecified organism Laterality: left Lung location: upper lobe of lung Qualified Code(s): J18.1 - Lobar pneumonia, unspecified organism Is this a current diagnosis for this admission?: Yes Plan: We will continue empiric antibiotics. Although her leukocytosis is slightly worse this is likely from the steroids as patient is clinically improved I would like to see the white count at least trend down and it is still at 19, 000 today. I have discussed this with the patient and asked her to at least stay for another 24 hours and we will recheck WBC tomorrow. I have also decrease the steroid dose as her lung status appears to be stabilized. Her white count shows a downward trend while he stabilizes tomorrow see probably can be discharged home (3) Morbid obesity with BMI of 45.0-49.9, adult Is this a current diagnosis for this admission?: Yes Plan: Weight loss advised (4) Nicotine abuse Is this a current diagnosis for this admission?: Yes Plan: Smoking cessation encouraged (5) COPD exacerbation Is this a current diagnosis for this admission?: Yes Plan: Continue to taper steroids (6) Paroxysmal supraventricular tachycardia Is this a current diagnosis for this admission?: Yes Plan: There has been no further episodes since initial one in the emergency department will defer any cardiac workup for now - Time Time Spent with patient: 15-24 minutes Medications reviewed and adjusted accordingly: Yes Anticipated discharge: Home Within: within 24 hours - Inpatient Certification Based on my medical assessment, after consideration of the patient's comorbidities, presenting symptoms, or acuity I expect that the services needed warrant INPATIENT care.: Yes Medical Necessity: Need for IV Antibiotics
[2017-11-30] MEDS: DULOXETINE HCL 30 MG CAPSULE.DR PO SCH (22:18)
[2017-12-01] MEDS: ALBUTEROL SULFATE 0.083% NEB 2.5 MG/3 ML AMPUL NEB SCH ×2 (01:52→09:15)
[2017-12-01] MEDS: LORAZEPAM 1 MG TABLET PO SCH ×2 (05:20→13:11)
[2017-12-01] MEDS: LEVOTHYROXINE SODIUM 0.1 MG TABLET PO SCH (05:21)
[2017-12-01 07:02] LABS: HEMATOCRIT 36.7 % (36.0-47.0); HEMOGLOBIN 12.1 g/dL (12.0-15.5); MEAN CORPUSCULAR HEMOGLOBIN 28.5 pg (27.0-33.4); MEAN CORPUSCULAR HGB CONC 32.9 g/dL (32.0-36.0); MEAN CORPUSCULAR VOLUME 87 fl (80-97); PLATELET COUNT 302 10^3/uL (150-450); RED BLOOD COUNT 4.24 10^6/uL (3.72-5.28); RED CELL DISTRIBUTION WIDTH 15.2 % (11.5-14.0); WHITE BLOOD COUNT 14.5 10^3/uL (4.0-10.5)
[2017-12-01] MEDS: GUAIFENESIN 600 MG TABLET.SA PO SCH (08:43)
[2017-12-01] MEDS: METFORMIN HCL 500 MG TABLET PO SCH (08:43)
[2017-12-01] MEDS: FAMOTIDINE 20 MG TABLET PO SCH (08:43)
[2017-12-01] MEDS: DOCUSATE SODIUM 100 MG CAPSULE PO SCH (08:43)
[2017-12-01] MEDS: ENOXAPARIN SODIUM INJ 40 MG/0.4 ML DISP.SYRIN SUBCUT SCH (08:44)
[2017-12-01] MEDS ORDERED: PREDNISONE 20 MG TABLET PO SCH (10:00)
[2017-12-01 12:12] VITALS: BP 142/76
--- NOTE | 2017-12-01 19:43 | PDOC DISCHARGE SUMMARY ---
General - Admit/Disc Date/PCP Admission Date/Primary Care Provider: 11/28/17 16:36 Discharge Date: 12/01/17 - Discharge Diagnosis (1) Acute respiratory failure with hypoxemia Is this a current diagnosis for this admission?: Yes Summary: She required supplemental O2 when she was initially hospitalized and this was weaned off prior to discharge. (2) COPD exacerbation Is this a current diagnosis for this admission?: Yes Summary: This was treated with steroids, supplemental O2, nebulizer treatments, and antibiotics. She needs a few more days of steroids and antibiotics. She responded rather quickly. (3) Morbid obesity with BMI of 45.0-49.9, adult Is this a current diagnosis for this admission?: Yes Summary: Recommended lifestyle modification. - Additional Information Resuscitation Status: Do Not Resuscitate Discharge Diet: Diabetic Discharge Activity: Activity As Tolerated Prescriptions: Levofloxacin [Levaquin 750 mg Tablet] 750 mg PO QPM #3 tablet Prednisone [Deltasone 20 mg Tablet] 30 mg PO DAILY #5 tablet Home Medications: Albuterol Sulfate [Proventil HFA] 1 puff IH Q12HP PRN 10/20/12 Duloxetine HCl [Cymbalta 30 mg Capsule.dr] 30 mg PO DAILY 10/20/12 Indomethacin [Indocin 50 mg Capsule] 50 mg PO DAILY 10/20/12 Levothyroxine Sodium [Synthroid] 300 mcg PO DAILY@0600 10/20/12 Lorazepam [Ativan 1 mg Tablet] 2 mg PO Q8HP PRN 10/20/12 Metformin HCl 500 mg PO Q12 11/28/17 Acetaminophen [Tylenol] 325 mg PO Q4HP PRN 11/29/17 Cholecalciferol (Vitamin D3) [Vitamin D3] 400 unit PO DAILY 11/29/17 Cyanocobalamin (Vitamin B-12) [Vitamin B12] 2,500 mcg PO DAILY 11/29/17 Levofloxacin [Levaquin 750 mg Tablet] 750 mg PO QPM #3 tablet 12/01/17 Prednisone [Deltasone 20 mg Tablet] 30 mg PO DAILY #5 tablet 12/01/17 History of Present Illness History of Present Illness: SHAYY GRANT is a 71 year old female Hospital Course Hospital Course: She was admitted with hypoxemia as a result of a flareup of COPD. She responded rather quickly to steroids and antibiotics and nebulizer treatments. She required supplemental oxygen for a couple of days but did not require a discharge. She needs to finish up a few more days of prednisone at home in addition to a few more days of some antibiotic. She was doing well on her labs were reassuring and she was doing well at time of discharge. Physical Exam Vital Signs: Temp Pulse Resp BP Pulse Ox 97.8 F 86 19 142/76 H 96 12/01/17 12:00 12/01/17 12:00 12/01/17 12:00 12/01/17 12:00 12/01/17 12:00 Intake & Output 11/30/17 12/01/17 12/02/17 06:59 06:59 06:59 Intake Total 1333 633 Balance 1333 633 Weight 125.6 kg 125.8 kg General appearance: PRESENT: no acute distress, cooperative, morbidly obese Respiratory exam: PRESENT: clear to auscultation asha, decreased breath sounds, symmetrical, unlabored. ABSENT: accessory muscle use, chest wall tenderness, crackles, prolonged expiratory phas, rales, rhonchi, tachypnea, wheezes Cardiovascular exam: PRESENT: RRR. ABSENT: diastolic murmur, gallop, rubs, systolic murmur Vascular exam: PRESENT: normal capillary refill GI/Abdominal exam: PRESENT: normal bowel sounds, soft. ABSENT: ascites, distended, guarding, rebound, tenderness Extremities exam: ABSENT: joint swelling, pedal edema Musculoskeletal exam: PRESENT: ambulatory, full ROM, normal inspection. ABSENT : deformity Results Laboratory Results: 12/01/17 06:20 11/29/17 03:55 12/01/17 06:20 WBC 14.5 H RBC 4.24 Hgb 12.1 Hct 36.7 MCV 87 MCH 28.5 MCHC 32.9 RDW 15.2 H Plt Count 302 11/29/17 03:55 Troponin I < 0.012 NT-Pro-B Natriuret Pep 567 Impressions: Chest X-Ray 11/28/17 11:56 IMPRESSION: Left upper lobe bandlike scarring or atelectasis. Qualifiers - * PATIENT BEING DISCHARGED WITH ANY OF THE FOLLOWING DIAGNOSIS: No
== END 2017-12-01 13:24 | disposition home or self-care (01) | DRG 190 ==
LOC: ER 11:33 → EH 16:36 → 5 17:46
PROVIDERS: ADMIT Internal Medicine; ATTEND Internal Medicine
PROC: 3E0F73Z Introduction of Anti-inflammatory into Respiratory Tract, Via Natural or Artificial Opening (ICD-10-PCS; principal; 2017-11-28)
DX: J44.1 Chronic obstructive pulmonary disease with (acute) exacerbation (principal); J96.01 Acute respiratory failure with hypoxia; J18.1 Lobar pneumonia, unspecified organism; Z68.42 Body mass index [BMI] 45.0-49.9, adult; I47.1 Supraventricular tachycardia; J44.0 Chronic obstructive pulmonary disease with (acute) lower respiratory infection; E66.01 Morbid (severe) obesity due to excess calories; Z66 Do not resuscitate; E11.9 Type 2 diabetes mellitus without complications; E03.9 Hypothyroidism, unspecified; M79.7 Fibromyalgia; F32.9 Major depressive disorder, single episode, unspecified; F17.210 Nicotine dependence, cigarettes, uncomplicated; F41.9 Anxiety disorder, unspecified; Z79.899 Other long term (current) drug therapy; Z79.52 Long term (current) use of systemic steroids; Z88.6 Allergy status to analgesic agent
CPT/HCPCS: 36415; 71045; 80048; 80053; 82962; 83605; 83735; 83880; 84443; 84484; 85025; 85027; 87040; 93005; 93010; 94640; 96361; 96374; 99285; J1956; J2920; J2930; J3490; J7030; J7512; J7620; S0119